=== PATIENT | female | born 1945 | race Caucasian/White ===

== ENCOUNTER 2017-03-30 14:43 | Emergency (ER) | payer MEDICARE | END 2017-03-30 17:19 | disposition home or self-care (01) | LOC: ER1 14:43 | DX: S42.211A Unspecified displaced fracture of surgical neck of right humerus, initial encounter for closed fracture (principal); I10 Essential (primary) hypertension; F17.210 Nicotine dependence, cigarettes, uncomplicated; Z79.82 Long term (current) use of aspirin; Z85.841 Personal history of malignant neoplasm of brain; Z88.5 Allergy status to narcotic agent; W17.89XA Other fall from one level to another, initial encounter; Y92.59 Other trade areas as the place of occurrence of the external cause | CPT/HCPCS: 73030; 73060; 73080; 99283 ==